=== PATIENT | female | born 1965 | race Caucasian/White ===

== ENCOUNTER 2019-11-23 07:27 | Observation (INO) | payer MEDICAID ==
[~2019-11-23] VITALS: Ht 172.7 cm; Wt 147.5 kg
[2019-11-23] VITALS (18 sets, daily range): BP systolic 118–183; BP diastolic 69–126
[2019-11-23] MEDS ORDERED: normal saline 1,000 ML IV SCH (07:50)
[2019-11-23] MEDS ORDERED: diphenhydrAMINE 25mg capsule PO PRN (07:50)
[2019-11-23] MEDS ORDERED: LISI40TA4 PO (08:46)
[2019-11-23] MEDS ORDERED: FURO40TA4 PO (08:46)
[2019-11-23] MEDS ORDERED: CARV25TA PO (08:46)
[2019-11-23] MEDS ORDERED: ACET-3068 PO (08:46)
[2019-11-23] MEDS ORDERED: ATOR20TA66 PO (08:46)
[2019-11-23] MEDS ORDERED: BUPR1FIL3 SL (08:46)
[2019-11-23] MEDS ORDERED: NITR0.4T48 SL (08:50)
[2019-11-23] MEDS ORDERED: GABA600T13 PO (08:50)
[2019-11-23] MEDS ORDERED: ASPI-1265 PO (08:50)
[2019-11-23] MEDS ORDERED: ALBU18HF2 INH (08:50)
[2019-11-23] MEDS ORDERED: CARSR60C PO (08:50)
[2019-11-23] MEDS ORDERED: IBUP-24 PO (08:50)
[2019-11-23] MEDS ORDERED: LORA-269 PO (08:53)
[2019-11-23 08:56] LABS: BASOPHILS # (AUTO) 0.1 X10'3 (0-0.2); BASOPHILS % (AUTO) 1.2 % (0-1); EOSINOPHILS # (AUTO) 0.5 X10'3 (0-0.9); EOSINOPHILS % (AUTO) 4.5 % (0-6); HEMATOCRIT 40.9 % (35.0-45.0); HEMOGLOBIN 13.7 g/dl (12.0-16.0); LYMPHOCYTES # (AUTO) 2.2 X10'3 (1.1-4.8); LYMPHOCYTES % (AUTO) 21.1 % (21-51); MEAN CORPUSCULAR HEMOGLOBIN 32.9 PG (27.0-31.0); MEAN CORPUSCULAR HGB CONC 33.6 g/dL (33.0-36.5); MEAN CORPUSCULAR VOLUME 98.1 FL (78-98); MEAN PLATELET VOLUME 9.6 FL (7.4-10.4); MONOCYTES # (AUTO) 0.7 X10'3 (0-0.9); MONOCYTES % (AUTO) 6.8 % (2-12); NEUTROPHILS # (AUTO) 6.8 X10'3 (1.8-7.7); NEUTROPHILS % (AUTO) 66.4 % (42-75); PLATELET COUNT 264 X10'3 (140-440); RED BLOOD COUNT 4.17 X10'6 (4.20-5.60); RED CELL DISTRIBUTION WIDTH 13.4 % (11.5-14.5); WHITE BLOOD COUNT 10.3 X10'3 (4.5-11.0)
[2019-11-23] MEDS ORDERED: fentaNYL/PF 50MCG/1 ML 2ML syringe ONE ×2 (08:56→09:57)
[2019-11-23] MEDS ORDERED: midazolam 2 mg/2 ml injection ONE ×8 (08:56→11:13)
[2019-11-23] MEDS ORDERED: iohexol 350 MG/ML 50ML vial IV ONE (08:57)
[2019-11-23] MEDS ORDERED: LIDOcaine 1% (10mg/ml)w/preservative injection 20ml MDV ONE (08:57)
[2019-11-23] MEDS ORDERED: heparin 1,000unit/ml 10ml vial 10 ML ONE (08:57)
[2019-11-23] MEDS ORDERED: iohexol 350MG/ML 100ml bottle IV ONE ×3 (08:57→10:53)
[2019-11-23] MEDS ORDERED: verapamil 2.5 mg/ml inj IV ONE (09:27)
[2019-11-23] MEDS ORDERED: nitroGLYCERIN-Tridil 50MG/D5W 250 ML IV ONE (09:27)
[2019-11-23 10:12] LABS: ALBUMIN 3.6 G/DL (3.4-5.0); ANION GAP 10 (8-16); BLOOD UREA NITROGEN 12 MG/DL (7-18); BUN/CREATININE RATIO 15.4 (6.6-38.0); CALCIUM 9.5 MG/DL (8.5-10.1); CHLORIDE 103 MMOL/L (99-107); CREATININE 0.78 MG/DL (0.40-0.90); GLUCOSE 112 MG/DL (70-104); MAGNESIUM 2.2 MG/DL (1.5-2.4); SODIUM 139 MMOL/L (135-145); TOTAL CARBON DIOXIDE 26.2 MMOL/L (24-32); eGFR 76 ML/MIN
[2019-11-23] MEDS ORDERED: proCHLORperazine 10 MG/2 ml inj ONE (10:56)
[2019-11-23] MEDS ORDERED: HYDROmorphone 1 mg/ml syringe ONE (11:17)
[2019-11-23] MEDS ORDERED: ticagrelor 90mg tablet ONE (11:29)
[2019-11-23] MEDS ORDERED: albuterol 2.5 MG/3 ML nebule NEB ONE (13:35)
[2019-11-23] MEDS ORDERED: furosemide 40mg/4ml inj IV STA (14:09)
[2019-11-23] MEDS ORDERED: morphine 2 MG/ML inj. syringe IV ONE (15:05)
[2019-11-23] MEDS ORDERED: methylPREDNISolone sod succ 125mg/2ml vial IV ONE (19:30)
[2019-11-23] MEDS ORDERED: albuterol 2.5 MG/3 ML nebule NEB PRN (20:35)
[2019-11-23] MEDS ORDERED: ipratropium/albuterol 3ml nebule NEB SCH (21:00)
[2019-11-24 02:00] VITALS: BP 96/61
[2019-11-24 06:00] VITALS: BP 151/81
--- NOTE | 2019-11-24 06:13 | NUR ---
Problems reprioritized. Patient report given, questions answered & plan of care reviewed with SEVERIANO Landry.
--- NOTE | 2019-11-24 06:17 | NUR ---
Patient in room PCU 3014. I have received report from Zakia العلي and had the opportunity to ask questions and assume patient care.
[2019-11-24] MEDS ORDERED: clopidogrel 300mg tablet PO ONE ×2 (08:00→08:45)
[2019-11-24] MEDS ORDERED: ATOR40TA71 PO (08:48)
[2019-11-24] MEDS ORDERED: CLOP75TA15 PO (08:48)
--- NOTE | 2019-11-24 09:24 | NUR ---
Stable for discharge per MD order, spoke to Dr Christy via telephone and MD is okay to discharge pt, all discharge instructions reviewed with patient and all questions answered, new prescriptions called into [facility] in [place], tele monitor and PIV discontinued, all belongings collected for patient.
--- NOTE | 2019-11-24 09:38 | NUR ---
Left unit in wheelchair with nurses aide to be discharged
--- NOTE | 2019-11-28 09:25 | NUR ---
IV normal saline was stopped at the time of discharge when patients PIV was discontinued. Addendum: 11/28/19 at 1322 by Harmony Colindres RN This note should be timed for 11/24/19 at 2193
== END 2019-11-24 09:53 | disposition home or self-care (01) ==
LOC: SSTAY O 07:27 → PCU 3S 19:07
PROVIDERS: ADMIT Internal Medicine Cardiovascular Disease; ATTEND Internal Medicine Cardiovascular Disease
DX: I25.10 Atherosclerotic heart disease of native coronary artery without angina pectoris (principal); R42 Dizziness and giddiness; I10 Essential (primary) hypertension; E66.9 Obesity, unspecified; Z87.891 Personal history of nicotine dependence; Z79.899 Other long term (current) drug therapy; Z68.42 Body mass index [BMI] 45.0-49.9, adult
CPT/HCPCS: 36415; 71045; 76937; 80048; 83735; 85025; 85610; 87081; 92920; 93005; 93458; 94640; 94760; 96361; 96374; 96375; C1725; C1751; C1760; C1769; C1874; C1894; C9600; G0378; J0780; J1170; J1644; J1940; J2001; J2250; J2930; J3010; J7030; Q0163; Q9967; 99152; 99153; A4620; A6258; J3490